=== PATIENT | male | born 1945 | race Hispanic/Latino ===

== ENCOUNTER 2019-08-24 16:36 | Inpatient (IN) | payer MEDICARE ==
--- NOTE | 2019-08-25 07:40 | History and Physical Report ---
GP History & Physical - History of Present Illness Date of admission: 08/24/19 Date of Examination: 08/25/19 Reason for Admission: Danger to self, Severe anxiety/depression, Unable to care for self Chief Complaint: Depressed and suicidal History of Present Illness: Patient is a 73 year old retired male with no past psychiatric history, with multiple medical problems including CVA, CKD, COPD on Oxygen, Bradycardia, HTN and AF. He was admitted from [facility] on 101 involuntary status after he made suicidal statements. Patient reportedly told his Sitter if he had a gun, he would shoot himself. Per Nursing notes, patient upon arrival to the Unit was alert and oriented x 1. Pt was calm and cooperative during admission process. Patient arrived on the unit ambulatory with steady gait via EMS with 4L O2 via nasal cannula. Patient is calm and cooperative this morning. He is confused, scored 18/30 in MMSE. He endorses being depressed but denies SI/HI/AVH/Paranoia. He reports s leeping and eating well Legal Status: Involuntary Patient Problems: Current Active Problems MDD (major depressive disorder), single episode, severe , no psychosis (Acute) Major neurocognitive disorder due to Alzheimer's disease (Acute) Reaction to Hospitalization: Accepting Medications and Allergies Allergies Allergy/AdvReac Type Severity Reaction Status Date / Time morphine AdvReac Swelling Verified 08/24/19 17:01 Home Medications Medication Instructions Recorded Confirmed Last Taken Type Allopurinol [Zyloprim] 300 mg PO QDAY 08/25/19 08/25/19 Unknown History Apixaban [Eliquis] 5 mg PO BID 08/25/19 08/25/19 Unknown History Escitalopram Oxalate 20 mg PO DAILY 08/25/19 08/25/19 Unknown History Famotidine [Pepcid] 20 mg PO DAILY 08/25/19 08/25/19 Unknown History Indomethacin 50 mg PO TID 08/25/19 08/25/19 Unknown History Ipratropium [Atrovent] 0.5 mg IH Q4HR PRN 08/25/19 08/25/19 Unknown History Lisinopril [Zestril] 20 mg PO QDAY 08/25/19 08/25/19 Unknown History Metoprolol Xl [Metoprolol 50 mg PO BID 08/25/19 08/25/19 Unknown History SUCCINATE ER TAB] Simvastatin 40 mg PO QHS 08/25/19 08/25/19 Unknown History Tamsulosin [Flomax] 0.4 mg PO QHS 08/25/19 08/25/19 Unknown History amLODIPine [Norvasc] 5 mg PO DAILY 08/25/19 08/25/19 Unknown History dilTIAZem HCl [Diltiazem 24Hr ER 120 mg PO DAILY 08/25/19 08/25/19 Unknown History (Xr)] hydroCHLOROthiazide [Hctz] 12.5 mg PO DAILY 08/25/19 08/25/19 Unknown History metFORMIN [Glucophage] 500 mg PO BID 08/25/19 08/25/19 Unknown History Active Meds: Active Medications Allopurinol (Zyloprim) 300 mg PO QDAY [facility] Amlodipine Besylate (Norvasc) 5 mg PO DAILY [facility] Apixaban (Eliquis) 5 mg PO BID [facility]; Protocol Famotidine (Pepcid) 20 mg PO DAILY [facility] Hydrochlorothiazide (Hctz) 12.5 mg PO DAILY [facility] Ipratropium [place] (Atrovent) 0.5 mg IH Q4HR PRN PRN Reason: Shortness Of Breath Lisinopril (Zestril) 20 mg PO QDAY [facility] Metformin HCl (Glucophage) 500 mg PO BID [facility] Metoprolol Succinate (Toprol Xl) 50 mg PO BID [facility] Miscellaneous Medication (Diltiazem Hcl [Diltiazem 24hr Er (Xr)]) 120 mg PO DAILY [facility] Miscellaneous Medication (Indomethacin [Indomethacin]) 50 mg PO TID [facility] Miscellaneous Medication (Simvastatin) 40 mg PO QHS [facility] Tamsulosin HCl (Flomax) 0.4 mg PO QHS [facility] Substance History - Substance History Drug Use: none Hx Tobacco Use: No Alcohol Use: No Past psychiatric history - Past Medical History Past Medical History: atrial fib, COPD, hypertension, stroke - past Psychiatric treatment and history psychiatric treatment history: Patient denies previous psych treatments/admissions. No suicide attempt - Social History Social history: , Lives alone (retired, completed HS, no legal problems and no access to guns) Review of Systems Psychiatric: memory loss, depression Results - Results Labs/Vitals: Laboratory Last Values POC Glucose 142 (70-105) H 08/25/19 06:35 Last Vital Signs Temp 97.7 F 08/25/19 04:49 Pulse 103 H 08/25/19 04:49 Resp 18 08/25/19 04:49 BP 163/90 08/25/19 04:49 Pulse Ox 97 08/25/19 04:49 Physical Examination - Constitutional Vitals: Vital Signs Temp Pulse Resp BP Pulse Ox 97.7 F 103 H 18 163/90 97 08/25/19 04:49 08/25/19 04:49 08/25/19 04:49 08/25/19 04:49 08/25/19 04:49 Temperature -Last 24 Hours Temperature 97.7 F General appearance: Present: no acute distress, disheveled - EENT Eyes: Present: PERRL, EOM intact ENT: hearing intact, clear oral mucosa - Neck Neck: Present: supple, normal ROM - Respiratory Respiratory effort: normal Mental Status Exam - Vital signs Last Vital Signs Temp 97.7 F 08/25/19 04:49 Pulse 103 H 08/25/19 04:49 Resp 18 08/25/19 04:49 BP 163/90 08/25/19 04:49 Pulse Ox 97 08/25/19 04:49 - Exam Orientation: person Affect: depressed Mood: congruent with affect Thought Process: Goal Oriented Perceptions: none Speech: paucity Concentration: distractible Motor activity: lethargic Level of consciousness: alert Memory: Recent Impaired, Remote Impaired Sleep Symptoms: None Interaction: cooperative Mini mental status exam(if necessary): 18- Assessment and Plan - Psychiatric problem (1) Major neurocognitive disorder due to Alzheimer's disease Current Visit: Yes Status: Acute (2) MDD (major depressive disorder), single episode, severe , no psychosis Current Visit: Yes Status: Acute plan to address problem: Patient will be admitted for inpatient psychiatric evaluation, medication adjustment and close monitoring The patient's behavior, mood, sleep and appetite will be closely monitored. Patient will be enrolled in individual and group therapeutic sessions and encouraged to attend. Patient will be provided with a safe and structured environment. Patient's physical health needs will be addressed by the Hospitalist. Social Assessment will be completed and the Experience Planning Strategist will work with p atient and family to ensure a suitable and safe disposition Medication adjustment will be made as clinically indicated The patient agreed on the treatment plan, understood the risk, benefit, alterna tive treatment, potential consequence of no treatment, and gave informed consent. Physician Certification - Certification Statement Physician Certification Statement: This is an acknowledgement statement that THERON LAWRENCE is a 73 year old M who requires inpatient psychiatric admission for treatment which could reasonably be expected to improve the patient's condition for Dementia and depression Estimated period of time patient will need to remain in the hospital: 7 days Plan for post-hospital care: Out-patient care
[2019-08-25] MEDS ORDERED: NON-FORMULARY EACH (Indomethacin [Indomethacin] 50 MG) PO SCH (08:00)
[2019-08-25] MEDS ORDERED: IPRATROPIUM 0.02% NEBU 2.5 ML IH PRN ×2 (08:46→09:00)
[2019-08-25] MEDS: METOPROLOL SUCCINATE XL 50 MG TAB PO SCH ×2 (09:46→21:19)
[2019-08-25] MEDS: APIXABAN 5 MG TAB PO SCH ×2 (09:46→21:17)
[2019-08-25] MEDS: allopurinoL 300 MG TAB PO SCH (09:47)
[2019-08-25] MEDS: hydroCHLOROthiazide 12.5 MG CAP PO SCH (09:47)
[2019-08-25] MEDS: INDOMETHACIN 25 MG CAP PO SCH ×3 (09:49→21:32)
[2019-08-25] MEDS ORDERED: DILTIAZEM HCL 120 MG PO SCH (10:00)
[2019-08-25] MEDS: amLODIPine 5 MG TAB PO SCH (11:42)
[2019-08-25] MEDS: CITALOPRAM 20 MG TAB PO SCH (11:43)
[2019-08-25] MEDS: metFORMIN 500 MG TAB PO SCH ×2 (11:43→18:28)
[2019-08-25] MEDS: LISINOPRIL 20 MG TAB PO SCH (11:43)
[2019-08-25] MEDS: ARIPiprazole 10 MG TAB PO SCH (11:44)
[2019-08-25] MEDS: FAMOTIDINE 20 MG TAB PO SCH (11:44)
[2019-08-25] MEDS ORDERED: ALBUTEROL 2.5 MG/3 ML NEBU IH PRN ×2 (12:00)
--- NOTE | 2019-08-25 20:18 | Consultation ---
History of Present Illness - Reason for Consult Consult date: 08/25/19 Medical Management of COPD, A.fib, HTN, BPH, Requesting physician: CARLOS VENTURA - History of Present Illness 73-year-old male with history of COPD, hypertension, DM, CVA, CKD, A. fib, BPH, major depressive disorder, Alzheimer's presents [facility] after being admitted from [facility] on 1013 involuntary status. Patient made suicidal statements stating that if he had a gun he would shoot himself. Pt was admitted to [facility]. We are seeing this patient in consultation to manage his medical conditions. Pt is a and usually gets all his care at the [facility] in [place], [place]. He states that he is compliant with meds. Past History Past Medical History: atrial fib, COPD (not on home o2), diabetes, hypertension, renal failure, stroke, other (memory loss, depression) Social history: , Lives alone (retired, completed HS, no legal problems and no access to guns), other (former smoker) Family history: no significant family history Medications and Allergies Allergies Allergy/AdvReac Type Severity Reaction Status Date / Time morphine AdvReac Swelling Verified 08/24/19 17:01 Home Medications Medication Instructions Recorded Confirmed Last Taken Type Allopurinol [Zyloprim] 300 mg PO QDAY 08/25/19 08/25/19 Unknown History Apixaban [Eliquis] 5 mg PO BID 08/25/19 08/25/19 Unknown History Escitalopram Oxalate 20 mg PO DAILY 08/25/19 08/25/19 Unknown History Famotidine [Pepcid] 20 mg PO DAILY 08/25/19 08/25/19 Unknown History Indomethacin 50 mg PO TID 08/25/19 08/25/19 Unknown History Ipratropium [Atrovent] 0.5 mg IH Q4HR PRN 08/25/19 08/25/19 Unknown History Lisinopril [Zestril] 20 mg PO QDAY 08/25/19 08/25/19 Unknown History Metoprolol Xl [Metoprolol 50 mg PO BID 08/25/19 08/25/19 Unknown History SUCCINATE ER TAB] Simvastatin 40 mg PO QHS 08/25/19 08/25/19 Unknown History Tamsulosin [Flomax] 0.4 mg PO QHS 08/25/19 08/25/19 Unknown History amLODIPine [Norvasc] 5 mg PO DAILY 08/25/19 08/25/19 Unknown History dilTIAZem HCl [Diltiazem 24Hr ER 120 mg PO DAILY 08/25/19 08/25/19 Unknown History (Xr)] hydroCHLOROthiazide [Hctz] 12.5 mg PO DAILY 08/25/19 08/25/19 Unknown History metFORMIN [Glucophage] 500 mg PO BID 08/25/19 08/25/19 Unknown History Active Meds: Active Medications Albuterol (Proventil) 2.5 mg IH Q4HRT PRN PRN Reason: Shortness Of Breath Allopurinol (Zyloprim) 300 mg PO QDAY [facility] Last Admin: 08/25/19 09:47 Dose: 300 mg Documented by: Amlodipine Besylate (Norvasc) 5 mg PO DAILY [facility] Last Admin: 08/25/19 11:42 Dose: 5 mg Documented by: Apixaban (Eliquis) 5 mg PO BID [facility]; Protocol Last Admin: 08/25/19 09:46 Dose: 5 mg Documented by: Aripiprazole (Abilify) 5 mg PO QDAY [facility] Last Admin: 08/25/19 11:44 Dose: 5 mg Documented by: Citalopram Hydrobromide (Celexa) 20 mg PO QDAY [facility] Last Admin: 08/25/19 11:43 Dose: 20 mg Documented by: Famotidine (Pepcid) 20 mg PO DAILY [facility] Last Admin: 08/25/19 11:44 Dose: 20 mg Documented by: Hydrochlorothiazide (Hctz) 12.5 mg PO DAILY [facility] Last Admin: 08/25/19 09:47 Dose: 12.5 mg Documented by: Indomethacin (Indocin) 50 mg PO TID [facility] Last Admin: 08/25/19 15:02 Dose: 50 mg Documented by: Lisinopril (Zestril) 20 mg PO QDAY [facility] Last Admin: 08/25/19 11:43 Dose: 20 mg Documented by: Metformin HCl (Glucophage) 500 mg PO BIDDIAB [facility] Last Admin: 08/25/19 18:28 Dose: 500 mg Documented by: Metoprolol Succinate (Toprol Xl) 50 mg PO BID [facility] Last Admin: 08/25/19 09:46 Dose: 50 mg Documented by: Pravastatin Sodium (Pravachol) 80 mg PO QHS [facility] Tamsulosin HCl (Flomax) 0.4 mg PO QHS [facility] Review of Systems All systems: negative Respiratory: cough (occasional), dyspnea on exertion Exam - Physical Exam Narrative exam: Physical exam General appearance: Present: No acute distress, alert and oriented 3, pleasant, adult -[place]ron[place] male - EENT Eyes: Present: PERRL, EOM intact, ENT: hearing intact, missing teeth - Neck Neck: Present: supple, normal ROM - Respiratory Respiratory effort: Non-labored, on supplemental O2 Respiratory: diminished bases - Cardiovascular Heart rate: 81 (bpm) Rhythm: SR Heart Sounds: Present: S1, S2 - Extremities Extremities: no ischemia, pulses intact - Peripheral Assessment Peripheral Pulses: within normal limits - Abdominal General gastrointestinal: soft, non-tender, normal bowel sounds - Integumentary Integumentary: Present: warm, dry, - Musculoskeletal Musculoskeletal: Able to move all extremities, normal gait -Neurological Neurological: CN II-XII grossly intact - Psychiatric Psychiatric: cooperative - Constitutional Vitals: Temp Pulse Resp BP Pulse Ox 97.9 F 81 20 143/81 96 08/25/19 10:00 08/25/19 19:05 08/25/19 10:00 08/25/19 11:43 08/25/19 19:05 Results - Labs Labs: Abnormal lab results 08/25/19 08/25/19 08/25/19 Range/Units 06:35 08:58 11:46 POC Glucose 142 H 147 H (70-105) Hemoglobin A1c 7.4 H (4-6) % Assessment and Plan 73-year-old male with history of COPD, hypertension, DM, CVA, CKD, A. fib, BPH, major depressive disorder, Alzheimer's presents [facility] after being admitted from [facility] on 1013 involuntary status. At the time of my examination pt is sitting in day room watching tv. He denies SI and HI at this time. Acute hypoxic respiratory failure -No Baseline home oxygen requirements -Currently on 2L NC with saturation of 96% at rest, desats to low to mid 80's on RA -Monitor saturations -Continue supplemental oxygen wean as tolerated COPD -Pt states that he does not use maintenance inhaler -Start scheduled Pulmicort -Continue albuterol when necessary HTN -Continue to monitor BP -Continue home antihypertensive meds to optimize BP DM2 -HgbA1c 7.4 -POC BG monitoring -Continue Metformin -SSI coverage prn Hx of Afib -on Eliquis Hx CVA -Continue Statin Hx BPH -Continue Flomax Major depressive disorder -Management per primary
[2019-08-25] MEDS ORDERED: DEXTROSE 50% IN WATER (25GM) 50 ML SYRINGE IV PRN (20:36)
[2019-08-25] MEDS: TAMSULOSIN 0.4 MG CAP PO SCH (21:18)
[2019-08-25] MEDS: PRAVASTATIN 80 MG TAB PO SCH (21:19)
[2019-08-25] MEDS: BUDESONIDE 0.5 MG/2 ML NEBU IH SCH (21:53)
[2019-08-25] MEDS ORDERED: NON-FORMULARY EACH (Simvastatin 40 MG) PO SCH (22:00)
[2019-08-25] MEDS: INSULIN LISPRO 100 UNIT/ML SUB-Q SCH (23:47)
[2019-08-26] MEDS: INDOMETHACIN 25 MG CAP PO SCH ×3 (07:30→20:37)
--- NOTE | 2019-08-26 08:57 | Progress Note ---
Subjective Date of service: 08/26/19 Principal diagnosis: Dementia and depression Subjective Comment: Patient is pleasant and calm, withdrawn but denies SI/HI/AVH MSE Orientation: person Affect: depressed Mood: congruent with affect Thought Process: Goal Oriented Perceptions: none Speech: paucity Concentration: distractible Motor activity: lethargic Level of consciousness: alert Memory: Recent Impaired, Remote Impaired Sleep Symptoms: None Interaction: cooperative Objective - Criteria for Continued Treatment Criteria for Continued Treatment: Improving Level of Functioning, Stablizing Level of Functioning, Improving Emotional/Socia - Objective Observation Participation Level: Minimal Assessment and Plan - Patient Problems (1) Major neurocognitive disorder due to Alzheimer's disease Current Visit: Yes Status: Acute (2) MDD (major depressive disorder), single episode, severe , no psychosis Current Visit: Yes Status: Acute Plan to address problem: Patient will be admitted for inpatient psychiatric evaluation, medication adjustment and close monitoring The patient's behavior, mood, sleep and appetite will be closely monitored. Patient will be enrolled in individual and group therapeutic sessions and encouraged to attend. Patient will be provided with a safe and structured environment. Patient's physical health needs will be addressed by the Hospitalist. Social Assessment will be completed and the Fiscal Analyst will work with patient and family to ensure a suitable and safe disposition Medication adjustment will be made as clinically indicated The patient agreed on the treatment plan, understood the risk, benefit, alternative treatment, potential consequence of no treatment, and gave informed consent. Medications and Allergies Allergies Allergy/AdvReac Type Severity Reaction Status Date / Time morphine AdvReac Swelling Verified 08/24/19 17:01 Home Medications Medication Instructions Recorded Confirmed Last Taken Type Allopurinol [Zyloprim] 300 mg PO QDAY 08/25/19 08/25/19 Unknown History Apixaban [Eliquis] 5 mg PO BID 08/25/19 08/25/19 Unknown History Escitalopram Oxalate 20 mg PO DAILY 08/25/19 08/25/19 Unknown History Famotidine [Pepcid] 20 mg PO DAILY 08/25/19 08/25/19 Unknown History Indomethacin 50 mg PO TID 08/25/19 08/25/19 Unknown History Ipratropium [Atrovent] 0.5 mg IH Q4HR PRN 08/25/19 08/25/19 Unknown History Lisinopril [Zestril] 20 mg PO QDAY 08/25/19 08/25/19 Unknown History Metoprolol Xl [Metoprolol 50 mg PO BID 08/25/19 08/25/19 Unknown History SUCCINATE ER TAB] Simvastatin 40 mg PO QHS 08/25/19 08/25/19 Unknown History Tamsulosin [Flomax] 0.4 mg PO QHS 08/25/19 08/25/19 Unknown History amLODIPine [Norvasc] 5 mg PO DAILY 08/25/19 08/25/19 Unknown History dilTIAZem HCl [Diltiazem 24Hr ER 120 mg PO DAILY 08/25/19 08/25/19 Unknown History (Xr)] hydroCHLOROthiazide [Hctz] 12.5 mg PO DAILY 08/25/19 08/25/19 Unknown History metFORMIN [Glucophage] 500 mg PO BID 08/25/19 08/25/19 Unknown History Active Meds: Active Medications Albuterol (Proventil) 2.5 mg IH Q4HRT PRN PRN Reason: Shortness Of Breath Last Admin: 08/25/19 21:53 Dose: 2.5 mg Documented by: Allopurinol (Zyloprim) 300 mg PO QDAY [facility] Last Admin: 08/25/19 09:47 Dose: 300 mg Documented by: Amlodipine Besylate (Norvasc) 5 mg PO DAILY [facility] Last Admin: 08/25/19 11:42 Dose: 5 mg Documented by: Apixaban (Eliquis) 5 mg PO BID [facility]; Protocol Last Admin: 08/25/19 21:17 Dose: 5 mg Documented by: Aripiprazole (Abilify) 5 mg PO QDAY [facility] Last Admin: 08/25/19 11:44 Dose: 5 mg Documented by: Budesonide (Pulmicort) 0.5 mg IH Q12HRT [facility] Last Admin: 08/25/19 21:53 Dose: 0.5 mg Documented by: Citalopram Hydrobromide (Celexa) 20 mg PO QDAY [facility] Last Admin: 08/25/19 11:43 Dose: 20 mg Documented by: Dextrose (D50w (25gm) Syringe) 50 ml IV PRN PRN PRN Reason: Hypoglycemia Famotidine (Pepcid) 20 mg PO DAILY [facility] Last Admin: 08/25/19 11:44 Dose: 20 mg Documented by: Hydrochlorothiazide (Hctz) 12.5 mg PO DAILY [facility] Last Admin: 08/25/19 09:47 Dose: 12.5 mg Documented by: Indomethacin (Indocin) 50 mg PO TID [facility] Last Admin: 08/25/19 21:32 Dose: 50 mg Documented by: Insulin Human Lispro (Humalog) 0 unit SUB-Q ACHS [facility]; Protocol Last Admin: 08/25/19 23:47 Dose: 3 unit Documented by: Lisinopril (Zestril) 20 mg PO QDAY [facility] Last Admin: 08/25/19 11:43 Dose: 20 mg Documented by: Metformin HCl (Glucophage) 500 mg PO BIDDIAB [facility] Last Admin: 08/25/19 18:28 Dose: 500 mg Documented by: Metoprolol Succinate (Toprol Xl) 50 mg PO BID [facility] Last Admin: 08/25/19 21:19 Dose: 50 mg Documented by: Pravastatin Sodium (Pravachol) 80 mg PO QHS [facility] Last Admin: 08/25/19 21:19 Dose: 80 mg Documented by: Tamsulosin HCl (Flomax) 0.4 mg PO QHS [facility] Last Admin: 08/25/19 21:18 Dose: 0.4 mg Documented by: Results - Results Labs/Vitals: Laboratory Last Values POC Glucose 192 (70-105) H 08/26/19 08:16 Hemoglobin A1c 7.4 % (4-6) H 08/25/19 08:58 Last Vital Signs Temp 98.2 F 08/25/19 20:18 Pulse 84 08/25/19 21:54 Resp 16 08/25/19 21:54 BP 136/70 08/25/19 21:19 Pulse Ox 94 08/25/19 21:57
[2019-08-26] MEDS: metFORMIN 500 MG TAB PO SCH ×2 (11:29→16:40)
[2019-08-26] MEDS: ARIPiprazole 10 MG TAB PO SCH (11:29)
[2019-08-26] MEDS: APIXABAN 5 MG TAB PO SCH ×2 (11:29→21:08)
[2019-08-26] MEDS: FAMOTIDINE 20 MG TAB PO SCH (11:30)
[2019-08-26] MEDS: allopurinoL 300 MG TAB PO SCH (11:30)
[2019-08-26] MEDS: hydroCHLOROthiazide 12.5 MG CAP PO SCH (11:30)
[2019-08-26] MEDS: CITALOPRAM 20 MG TAB PO SCH (11:31)
[2019-08-26] MEDS: amLODIPine 5 MG TAB PO SCH (11:31)
[2019-08-26] MEDS: LISINOPRIL 20 MG TAB PO SCH (11:31)
[2019-08-26] MEDS: METOPROLOL SUCCINATE XL 50 MG TAB PO SCH ×2 (11:33→21:08)
[2019-08-26] MEDS: INSULIN LISPRO 100 UNIT/ML SUB-Q SCH ×4 (13:18→21:09)
[2019-08-26] MEDS: BUDESONIDE 0.5 MG/2 ML NEBU IH SCH ×3 (16:33→19:03)
[2019-08-26] MEDS: TAMSULOSIN 0.4 MG CAP PO SCH (21:08)
[2019-08-26] MEDS: PRAVASTATIN 80 MG TAB PO SCH (21:08)
[2019-08-27] MEDS: BUDESONIDE 0.5 MG/2 ML NEBU IH SCH ×2 (08:34→20:43)
[2019-08-27] MEDS: INSULIN LISPRO 100 UNIT/ML SUB-Q SCH ×4 (09:04→21:14)
[2019-08-27] MEDS: INDOMETHACIN 25 MG CAP PO SCH ×3 (09:05→20:21)
[2019-08-27] MEDS: metFORMIN 500 MG TAB PO SCH ×2 (09:05→17:13)
--- NOTE | 2019-08-27 09:05 | Progress Note ---
Subjective Date of service: 08/27/19 Principal diagnosis: Dementia and depression Subjective Comment: Patient is dishevelled, depressed but pleasant and calm. He denies SI/HI/AVH MSE Orientation: person Affect: depressed Mood: congruent with affect Thought Process: Goal Oriented Perceptions: none Speech: paucity Concentration: distractible Motor activity: lethargic Level of consciousness: alert Memory: Recent Impaired, Remote Impaired Sleep Symptoms: None Interaction: cooperative Objective - Criteria for Continued Treatment Criteria for Continued Treatment: Improving Level of Functioning, Stablizing Level of Functioning - Objective Observation Participation Level: Moderate Assessment and Plan - Patient Problems (1) Major neurocognitive disorder due to Alzheimer's disease Current Visit: Yes Status: Acute (2) MDD (major depressive disorder), single episode, severe , no psychosis Current Visit: Yes Status: Acute Plan to address problem: Patient will be admitted for inpatient psychiatric evaluation, medication adjustment and close monitoring The patient's behavior, mood, sleep and appetite will be closely monitored. Patient will be enrolled in individual and group therapeutic sessions and encouraged to attend. Patient will be provided with a safe and structured environment. Patient's physical health needs will be addressed by the Hospitalist. Social Assessment will be completed and the Custodian [employer] will work with patient and family to ensure a suitable and safe disposition Medication adjustment will be made as clinically indicated The patient agreed on the treatment plan, understood the risk, benefit, alternative treatment, potential consequence of no treatment, and gave informed consent. Medications and Allergies Allergies Allergy/AdvReac Type Severity Reaction Status Date / Time morphine AdvReac Swelling Verified 08/24/19 17:01 Home Medications Medication Instructions Recorded Confirmed Last Taken Type Allopurinol [Zyloprim] 300 mg PO QDAY 08/25/19 08/25/19 Unknown History Apixaban [Eliquis] 5 mg PO BID 08/25/19 08/25/19 Unknown History Escitalopram Oxalate 20 mg PO DAILY 08/25/19 08/25/19 Unknown History Famotidine [Pepcid] 20 mg PO DAILY 08/25/19 08/25/19 Unknown History Indomethacin 50 mg PO TID 08/25/19 08/25/19 Unknown History Ipratropium [Atrovent] 0.5 mg IH Q4HR PRN 08/25/19 08/25/19 Unknown History Lisinopril [Zestril] 20 mg PO QDAY 08/25/19 08/25/19 Unknown History Metoprolol Xl [Metoprolol 50 mg PO BID 08/25/19 08/25/19 Unknown History SUCCINATE ER TAB] Simvastatin 40 mg PO QHS 08/25/19 08/25/19 Unknown History Tamsulosin [Flomax] 0.4 mg PO QHS 08/25/19 08/25/19 Unknown History amLODIPine [Norvasc] 5 mg PO DAILY 08/25/19 08/25/19 Unknown History dilTIAZem HCl [Diltiazem 24Hr ER 120 mg PO DAILY 08/25/19 08/25/19 Unknown History (Xr)] hydroCHLOROthiazide [Hctz] 12.5 mg PO DAILY 08/25/19 08/25/19 Unknown History metFORMIN [Glucophage] 500 mg PO BID 08/25/19 08/25/19 Unknown History Active Meds: Active Medications Albuterol (Proventil) 2.5 mg IH Q4HRT PRN PRN Reason: Shortness Of Breath Last Admin: 08/25/19 21:53 Dose: 2.5 mg Documented by: Allopurinol (Zyloprim) 300 mg PO QDAY [facility] Last Admin: 08/26/19 11:30 Dose: 300 mg Documented by: Amlodipine Besylate (Norvasc) 5 mg PO DAILY [facility] Last Admin: 08/26/19 11:31 Dose: 5 mg Documented by: Apixaban (Eliquis) 5 mg PO BID [facility]; Protocol Last Admin: 08/26/19 21:08 Dose: 5 mg Documented by: Aripiprazole (Abilify) 5 mg PO QDAY [facility] Last Admin: 08/26/19 11:29 Dose: 5 mg Documented by: Budesonide (Pulmicort) 0.5 mg IH Q12HRT [facility] Last Admin: 08/27/19 08:34 Dose: 0.5 mg Documented by: Citalopram Hydrobromide (Celexa) 20 mg PO QDAY [facility] Last Admin: 08/26/19 11:31 Dose: 20 mg Documented by: Dextrose (D50w (25gm) Syringe) 50 ml IV PRN PRN PRN Reason: Hypoglycemia Famotidine (Pepcid) 20 mg PO DAILY [facility] Last Admin: 08/26/19 11:30 Dose: 20 mg Documented by: Hydrochlorothiazide (Hctz) 12.5 mg PO DAILY [facility] Last Admin: 08/26/19 11:30 Dose: 12.5 mg Documented by: Indomethacin (Indocin) 50 mg PO TID [facility] Last Admin: 08/26/19 20:37 Dose: 50 mg Documented by: Insulin Human Lispro (Humalog) 0 unit SUB-Q ACHS [facility]; Protocol Last Admin: 08/26/19 21:09 Dose: Not Given Documented by: Lisinopril (Zestril) 20 mg PO QDAY [facility] Last Admin: 08/26/19 11:31 Dose: 20 mg Documented by: Metformin HCl (Glucophage) 500 mg PO BIDDIAB [facility] Last Admin: 08/26/19 16:40 Dose: 500 mg Documented by: Metoprolol Succinate (Toprol Xl) 50 mg PO BID [facility] Last Admin: 08/26/19 21:08 Dose: 50 mg Documented by: Pravastatin Sodium (Pravachol) 80 mg PO QHS [facility] Last Admin: 08/26/19 21:08 Dose: 80 mg Documented by: Tamsulosin HCl (Flomax) 0.4 mg PO QHS [facility] Last Admin: 08/26/19 21:08 Dose: 0.4 mg Documented by: Results - Results Labs/Vitals: Laboratory Last Values POC Glucose 163 (70-105) H 08/27/19 06:45 Hemoglobin A1c 7.4 % (4-6) H 08/25/19 08:58 Last Vital Signs Temp 97.2 F L 08/26/19 22:00 Pulse 55 L 08/27/19 08:34 Resp 12 08/27/19 08:34 BP 132/73 08/26/19 22:00 Pulse Ox 95 08/27/19 08:52
[2019-08-27] MEDS: LISINOPRIL 20 MG TAB PO SCH (10:00)
[2019-08-27] MEDS: CITALOPRAM 20 MG TAB PO SCH (10:00)
[2019-08-27] MEDS: APIXABAN 5 MG TAB PO SCH ×2 (10:01→21:15)
[2019-08-27] MEDS: METOPROLOL SUCCINATE XL 50 MG TAB PO SCH ×2 (10:01→21:13)
[2019-08-27] MEDS: allopurinoL 300 MG TAB PO SCH (10:02)
[2019-08-27] MEDS: hydroCHLOROthiazide 12.5 MG CAP PO SCH (10:02)
[2019-08-27] MEDS: amLODIPine 5 MG TAB PO SCH (10:02)
[2019-08-27] MEDS: FAMOTIDINE 20 MG TAB PO SCH (10:02)
[2019-08-27] MEDS: ARIPiprazole 10 MG TAB PO SCH (10:14)
[2019-08-27] MEDS: PRAVASTATIN 80 MG TAB PO SCH (21:15)
[2019-08-27] MEDS: TAMSULOSIN 0.4 MG CAP PO SCH (21:15)
[2019-08-28] MEDS: INSULIN LISPRO 100 UNIT/ML SUB-Q SCH ×2 (07:27→12:24)
[2019-08-28] MEDS: metFORMIN 500 MG TAB PO SCH (08:01)
[2019-08-28] MEDS: BUDESONIDE 0.5 MG/2 ML NEBU IH SCH (08:51)
[2019-08-28 09:40] VITALS: BP 134/70
[2019-08-28] MEDS: amLODIPine 5 MG TAB PO SCH (09:45)
[2019-08-28] MEDS: FAMOTIDINE 20 MG TAB PO SCH (09:45)
[2019-08-28] MEDS: CITALOPRAM 20 MG TAB PO SCH (09:45)
[2019-08-28] MEDS: LISINOPRIL 20 MG TAB PO SCH (09:45)
[2019-08-28] MEDS: APIXABAN 5 MG TAB PO SCH (09:46)
[2019-08-28] MEDS: hydroCHLOROthiazide 12.5 MG CAP PO SCH (09:46)
[2019-08-28] MEDS: INDOMETHACIN 25 MG CAP PO SCH ×2 (09:46→13:45)
[2019-08-28] MEDS: allopurinoL 300 MG TAB PO SCH (09:47)
[2019-08-28] MEDS: ARIPiprazole 10 MG TAB PO SCH (09:47)
[2019-08-28] MEDS: METOPROLOL SUCCINATE XL 50 MG TAB PO SCH (09:57)
--- NOTE | 2019-08-28 12:18 | Discharge Summary ---
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 Hospital course: The patient was provided inpatient psychiatric treatment with safe and supportive environment, group therapy, individual counseling, psychiatric medication, medication adjustment, adverse effect monitor, medical evaluation, medical treatment, social service assessment, family/social support meeting, placement assessment and psycho-education. The patients mood, anxiety, thoughts, stress management skill, cognition, impulse/anger control, motivation, understanding of disease, compliance to treatment and appreciation on family/social support are improved and stabilized. At the time of discharge, the patient had no suicidal ideas, no homicidal ideas, no aggressive thoughts, no endangering behavior and no debilitating adverse effects. Disposition: DC-01 TO HOME OR SELFCARE Time spent for discharge: 34 mins Allergies/Adverse Reactions: Allergies morphine Adverse Reaction (Verified 08/24/19 17:01) Swelling Vital Signs: Last Vital Signs Temp 97.3 F L 08/27/19 19:36 Pulse 62 08/28/19 09:57 Resp 18 08/28/19 08:52 BP 134/70 08/28/19 09:57 Pulse Ox 96 08/28/19 09:23 Last Lab: Laboratory Last Values POC Glucose 118 (70-105) H 08/28/19 12:00 Hemoglobin A1c 7.4 % (4-6) H 08/25/19 08:58 - Discharge Diagnoses (1) Major neurocognitive disorder due to Alzheimer's disease Status: Acute (2) MDD (major depressive disorder), single episode, severe , no psychosis Status: Acute Core Measure Documentation - Palliative Care Palliative Care/ Comfort Measures: Not Applicable - Core Measures Any of the following diagnoses?: none Exam - Constitutional Vitals: Temp Pulse Resp BP Pulse Ox 97.3 F L 62 18 134/70 96 08/27/19 19:36 08/28/19 09:57 08/28/19 08:52 08/28/19 09:57 08/28/19 09:23 General appearance: Present: no acute distress - EENT Eyes: Present: PERRL, EOM intact ENT: hearing intact, clear oral mucosa - Neck Neck: Present: supple, normal ROM - Respiratory Respiratory effort: normal Plan Activity: advance as tolerated Weight Bearing Status: Weight Bear as Tolerated Care Plan Goals: Maintain good and stable mood Plan of Treatment: Take medications as prescribed and attend follow up visits Health Concerns: Memory decline Assessment: Dementia and depression Follow up with: PRIMARY CARE, [Primary Care Provider] - 7 Days Prescriptions: ARIPiprazole [Abilify TAB] 5 mg PO QDAY #30 tablet
== END 2019-08-28 14:38 | disposition home or self-care (01) | DRG 56 ==
LOC: UNDOADMIN 16:36 → 3A 16:36 → 5A 08-25 02:30
PROVIDERS: ADMIT Psychiatry & Neurology Psychiatry; ATTEND Psychiatry & Neurology Psychiatry
DX: G30.8 Other Alzheimer's disease (principal); F02.80 Dementia in other diseases classified elsewhere, unspecified severity, without behavioral disturbance, psychotic disturbance, mood disturbance, and anxiety; J96.01 Acute respiratory failure with hypoxia; N18.9 Chronic kidney disease, unspecified; F33.2 Major depressive disorder, recurrent severe without psychotic features; J44.9 Chronic obstructive pulmonary disease, unspecified; I48.91 Unspecified atrial fibrillation; Z60.2 Problems related to living alone; E11.22 Type 2 diabetes mellitus with diabetic chronic kidney disease; N40.0 Benign prostatic hyperplasia without lower urinary tract symptoms; I12.9 Hypertensive chronic kidney disease with stage 1 through stage 4 chronic kidney disease, or unspecified chronic kidney disease; Z88.5 Allergy status to narcotic agent; Z86.73 Personal history of transient ischemic attack (TIA), and cerebral infarction without residual deficits; Z79.01 Long term (current) use of anticoagulants; Z79.899 Other long term (current) drug therapy; Z79.84 Long term (current) use of oral hypoglycemic drugs
CPT/HCPCS: 36415; 82962; 83036; 94640; 94760; G0378; A9270-GY; J1815